=== PATIENT | female | born 1995 | race Two or more races ===

== ENCOUNTER 2017-09-20 20:28 | Inpatient (IN) | payer MEDICAID, OTHER ==
[~2017-09-20] VITALS: Ht 157.5 cm; Wt 79.4 kg
[2017-09-20] MEDS: LACTATED RINGER'S 1,000 ML IV SCH (21:00)
[2017-09-20] MEDS ORDERED: WITCH HAZEL-GLYCERIN PAD TOP PRN (21:15)
[2017-09-20] MEDS ORDERED: LACT. RINGERS/OXYTOCIN 20UNITS 1,000 ML IV SCH (21:15)
[2017-09-20] MEDS ORDERED: LIDOCAINE 2%HCL (LOCAL ANESTH.) INJ 20ML MDV IJ ONE (21:15)
[2017-09-20] MEDS ORDERED: DERMOPLAST 60ML BOTTLE TOP PRN (21:15)
[2017-09-20] MEDS ORDERED: PHISODERM TOP SOLN 240ML BTL TOP PRN (21:15)
[2017-09-20] MEDS ORDERED: NALBUPHINE HCL 10 MG/1ml INJECTION IV PRN (21:15)
[2017-09-20] MEDS ORDERED: METHYLERGONOVINE MALEATE 0.2 MG/ML AMP IM PRN (21:15)
[2017-09-20 22:00] LABS: Basophils # (auto) 0 uL; Eosinophils # (auto) 0 uL; Hemoglobin 9.7 g/dL (12.2-16.2)
[2017-09-20 22:01] LABS: Basophils % (auto) 0.6 % (0.0-2.0); Hematocrit 30.1 % (36.0-46.0); Lymphocytes % (auto) 12.4 % (10.0-50.0); Mean Corpuscular Hgb Conc. 32.1 g/dL (32.0-36.0); Mean Corpuscular Volume 71.6 fL (80.0-100.0); Monocytes # (auto) 0.4 uL; Neutrophils # (auto) 6.6 uL; Platelet Count (auto) 119 10^3/uL (140-450); Red Cell Distribution Width 17.2 % (11.8-14.3); White Blood Cell 8.1 10^3/uL (4.4-10.8)
[2017-09-20 22:15] LABS: INR 0.92 (0.9-1.15); Partial Thromboplastin Time 28.9 sec (22.64-33.71)
[2017-09-20 22:19] LABS: Albumin 2.9 g/dL (3.4-5.0); BUN/Creatinine Ratio 16.7; Calcium 8.1 mg/dL (8.5-10.1); Potassium 3.7 mmol/L (3.5-5.1)
[2017-09-20 22:21] LABS: Bilirubin, Total 0.6 mg/dL (0.2-1.0); Total Protein 6.9 g/dL (6.4-8.2)
[2017-09-20] MEDS ORDERED: PREN-96 PO (23:21)
[2017-09-20 23:32] LABS: Alcohol, Urine < 3.0 mg/dL (0-5); Amphetamine Screen, Urine NEGATIVE (NEGATIVE); Barbiturate Scree,Urine NEGATIVE (NEGATIVE); Benzodiazephine Screen, Urine NEGATIVE (NEGATIVE); Cannabinoid Screen, Urine NEGATIVE (NEGATIVE); Cocaine Screen, Urine NEGATIVE (NEGATIVE); Opiate Scree,Urine NEGATIVE (NEGATIVE); Phencyclidine Screen, Urine NEGATIVE (NEGATIVE)
[2017-09-20 23:37] LABS: Urine Bacteria NONE SEEN /hpf (None Seen); Urine Blood 2+ /uL (Negative); Urine Mucus FEW (None Seen); Urine Specific Gravity 1.023 (1.001-1.035); Urine WBC 61 /hpf (0 - 5)
[2017-09-21] MEDS ORDERED: ACETAMINOPHEN 325 MG TAB PO ONE (00:29)
[2017-09-21] MEDS: LACTATED RINGER'S 1,000 ML IV SCH ×2 (02:00→05:15)
[2017-09-21] MEDS: IBUPROFEN 600 MG TAB PO PRN ×5 (04:56→20:50)
[2017-09-21] MEDS ORDERED: INFLUENZA QUAD 2017-2018 0.5 ML SYRG IM ONE (08:00)
[2017-09-21 08:01] VITALS: BP 106/59
[2017-09-21] MEDS ORDERED: DOCUSATE CALCIUM 240 MG CAP PO SCH (10:00)
[2017-09-21 12:29] VITALS: BP 127/85
[2017-09-21 16:02] VITALS: BP 128/87
[2017-09-21] MEDS: ACETAMINOPHEN 325 MG TAB PO PRN ×2 (18:56→23:44)
[2017-09-21 19:48] VITALS: BP 108/64
[2017-09-21 23:54] VITALS: BP 98/54
[2017-09-22 03:30] VITALS: BP 113/69
[2017-09-22] MEDS ORDERED: MEASLES, MUMPS & RUBELLA VAC(MMRII) 0.5ML SC ONE (05:45)
[2017-09-22] MEDS ORDERED: TETANUS-DIPTH-ACEL PERTUSSIS 0.5ML SYRG IM ONE (05:45)
[2017-09-22 08:04] VITALS: BP 102/68
[2017-09-22] MEDS: IBUPROFEN 600 MG TAB PO PRN (08:06)
[2017-09-22 11:30] VITALS: BP 115/78
== END 2017-09-22 12:00 | disposition home or self-care (01) | DRG 560 ==
LOC: OBSVTOIN 20:28 → LDRP 20:28
PROVIDERS: ADMIT Specialist; ATTEND Specialist
PROC: 10E0XZZ Delivery of Products of Conception, External Approach (ICD-10-PCS; principal; 2017-09-21)
PROC: 3E033VJ Introduction of Other Hormone into Peripheral Vein, Percutaneous Approach (ICD-10-PCS; 2017-09-21)
DX: O42.92 Full-term premature rupture of membranes, unspecified as to length of time between rupture and onset of labor (principal); Z37.0 Single live birth; Z3A.39 39 weeks gestation of pregnancy
CPT/HCPCS: 36415; 59025; 59409; 80053; 80307; 81001; 81002; 85025; 85610; 85730; 86850; 86900; 86901; 90471; 90472; 90715; 96360; 96361; 96365; 96366; 96372; G0378; J2590

== ENCOUNTER 2017-12-30 17:57 | Emergency (ER) | payer MEDICAID ==
[~2017-12-30] VITALS: Ht 157.5 cm; Wt 70.3 kg
[~2017-12-30 17:57] MED LIST: PREN-96 PO
[2017-12-30 19:02] LABS: Eosinophils # (auto) 0 uL; Hemoglobin 12.1 g/dL (12.2-16.2); Monocytes # (auto) 0.3 uL; Neutrophils % (auto) 61.8 % (37.0-80.0)
[2017-12-30 19:08] LABS: Basophils # (auto) 0 uL; Basophils % (auto) 0.5 % (0.0-2.0); Eosinophils % (auto) 0.2 % (0.0-7.0); Hematocrit 37.1 % (36.0-46.0); Lymphocytes % (auto) 33.8 % (10.0-50.0); Mean Corpuscular Hgb Conc. 32.5 g/dL (32.0-36.0); Mean Corpuscular Volume 79.9 fL (80.0-100.0); Monocytes % (auto) 3.7 % (0.0-12.0); Neutrophils # (auto) 5.5 uL; Nucleated Red Blood Cells % 0.2 %; Platelet Count (auto) 340 10^3/uL (140-450); Red Blood Cells 4.65 10^6/uL (4.0-5.20); Red Cell Distribution Width 14.6 % (11.8-14.3); White Blood Cell 8.9 10^3/uL (4.4-10.8)
[2017-12-30 19:12] LABS: Acetaminophen < 2.0 ug/mL (10-30); Salicylate < 1.7 mg/dL (2.8-20.0)
[2017-12-30 19:14] LABS: BUN/Creatinine Ratio 14.3; Calcium 8.9 mg/dL (8.5-10.1); Potassium 3.6 mmol/L (3.5-5.1)
[2017-12-30 19:17] LABS: Bilirubin, Total 0.2 mg/dL (0.2-1.0); Total Protein 7.7 g/dL (6.4-8.2)
[2017-12-30 23:17] LABS: Urine Bacteria NONE SEEN /hpf (None Seen); Urine Blood 3+ /uL (Negative); Urine Mucus FEW (None Seen); Urine Specific Gravity 1.032 (1.001-1.035); Urine WBC 15 /hpf (0 - 5)
[2017-12-30 23:18] LABS: Urine Pregnacy Test Negative (Negative)
[2017-12-30 23:30] LABS: Alcohol, Urine < 3.0 mg/dL (0-5); Amphetamine Screen, Urine NEGATIVE (NEGATIVE); Barbiturate Scree,Urine NEGATIVE (NEGATIVE); Benzodiazephine Screen, Urine NEGATIVE (NEGATIVE); Cannabinoid Screen, Urine NEGATIVE (NEGATIVE); Cocaine Screen, Urine NEGATIVE (NEGATIVE); Opiate Scree,Urine NEGATIVE (NEGATIVE); Phencyclidine Screen, Urine NEGATIVE (NEGATIVE)
[2017-12-31 02:30] VITALS: BP 107/67
== END 2017-12-31 03:15 | disposition home or self-care (01) ==
LOC: ER 17:57
DX: R45.851 Suicidal ideations (principal); R42 Dizziness and giddiness; Z88.0 Allergy status to penicillin; Z79.899 Other long term (current) drug therapy; Y08.89XA Assault by other specified means, initial encounter; Y93.89 Activity, other specified; Y99.8 Other external cause status; Y92.89 Other specified places as the place of occurrence of the external cause
CPT/HCPCS: 36415; 70450; 70486; 80053; 80307; 80320; 80329; 81001; 81025; 85025

== ENCOUNTER 2018-12-01 14:20 | Observation (INO) | payer MEDICAID | END 2018-12-01 15:55 | disposition home or self-care (01) | DRG 566 | LOC: LDRP 14:20 | PROVIDERS: ADMIT Specialist; ATTEND Specialist | DX: O26.853 Spotting complicating pregnancy, third trimester (principal); O26.893 Other specified pregnancy related conditions, third trimester; N89.8 Other specified noninflammatory disorders of vagina; O62.9 Abnormality of forces of labor, unspecified; Z3A.29 29 weeks gestation of pregnancy | CPT/HCPCS: 59025; 76805; 76818; 81002; G0378 ==

== ENCOUNTER 2019-01-02 09:10 | Observation (INO) | payer MEDICAID ==
[2019-01-02] MEDS: TERBUTALINE SULFATE 1 MG/ML 1ML VIAL SC SCH ×3 (09:57→11:12)
[2019-01-02 10:12] LABS: Urine Bacteria FEW /hpf (None Seen); Urine Blood Negative /uL (Negative); Urine Mucus FEW (None Seen); Urine Specific Gravity 1.018 (1.001-1.035); Urine WBC 36 /hpf (0 - 5)
[2019-01-02 10:24] LABS: Alcohol, Urine < 3.0 mg/dL (0-5); Amphetamine Screen, Urine NEGATIVE (NEGATIVE); Barbiturate Scree,Urine NEGATIVE (NEGATIVE); Benzodiazephine Screen, Urine NEGATIVE (NEGATIVE); Cannabinoid Screen, Urine NEGATIVE (NEGATIVE); Cocaine Screen, Urine NEGATIVE (NEGATIVE); Opiate Scree,Urine NEGATIVE (NEGATIVE); Phencyclidine Screen, Urine NEGATIVE (NEGATIVE)
[2019-01-02] MEDS ORDERED: NIFEdipine 10 MG CAP PO ONE (11:45)
== END 2019-01-02 12:50 | disposition home or self-care (01) | DRG 566 ==
LOC: LDRP 09:10
PROVIDERS: ADMIT Obstetrics & Gynecology; ATTEND Obstetrics & Gynecology
DX: O62.9 Abnormality of forces of labor, unspecified (principal); O26.893 Other specified pregnancy related conditions, third trimester; N89.8 Other specified noninflammatory disorders of vagina; Z3A.33 33 weeks gestation of pregnancy
CPT/HCPCS: 59025; 76815; 80307; 81001; 81002; 96372; G0378; J3105

== ENCOUNTER 2019-01-10 22:03 | Observation (INO) | payer MEDICAID ==
[~2019-01-10] VITALS: Ht 157.5 cm; Wt 76.7 kg
[2019-01-10] MEDS ORDERED: LACTATED RINGER'S 1,000 ML IV ONE (22:50)
[2019-01-10] MEDS ORDERED: NIFEdipine 10 MG CAP PO ONE (23:00)
--- NOTE | 2019-01-10 23:56 | NUR ---
Admission Note Vaginal: Vacuum assisted of viable by Dr. Colin. Bulb suction to mouth and nose before stimulation. Cord clamped and cut by Dr. Colin. NB to radiant warmer. NB dried and stimulated by RN and RT. Poor resp effort. CPAP given. Continued drying and stimulating. Vigorous cry, grunting noted. Apgars 6/8/9. NB weighed, measured. ID bands applied on infant x2, mother and father. Dr. Colin requests NB remain in warmer during perineal repair and delivery of retained placenta. Education on the benefits of SSC and encouragement of given. 01/11/19 0100-- Report given to Leandro Aceves RN. NB stable. Care relinquished.
[2019-01-11] MEDS ORDERED: TERBUTALINE SULFATE 1 MG/ML 1ML VIAL SC ONE ×2 (02:00→02:11)
[2019-01-11] MEDS ORDERED: NIFEdipine 10 MG CAP PO ONE (03:10)
== END 2019-01-11 04:41 | disposition home or self-care (01) | DRG 566 ==
LOC: LDRP 22:03
PROVIDERS: ADMIT Specialist; ATTEND Specialist
DX: O00.01 Abdominal pregnancy with intrauterine pregnancy (principal); O26.853 Spotting complicating pregnancy, third trimester; O62.9 Abnormality of forces of labor, unspecified; Z3A.34 34 weeks gestation of pregnancy
CPT/HCPCS: 59025; 81002; 96372; G0378; J3105; 96365; 96366

== ENCOUNTER 2019-01-13 22:25 | Observation (INO) | payer MEDICAID ==
[~2019-01-13] VITALS: Ht 157.5 cm; Wt 76.7 kg
== END 2019-01-13 23:40 | disposition home or self-care (01) | DRG 563 ==
LOC: LDRP 22:25
PROVIDERS: ADMIT Obstetrics & Gynecology; ATTEND Obstetrics & Gynecology
DX: O60.03 Preterm labor without delivery, third trimester (principal); O62.9 Abnormality of forces of labor, unspecified; Z3A.35 35 weeks gestation of pregnancy
CPT/HCPCS: 59025; 81002; G0378

== ENCOUNTER 2019-01-17 21:14 | Observation (INO) | payer MEDICAID ==
--- NOTE | 2019-01-17 22:45 | NUR ---
AMA Note OVIDIO WORLEY states they want to leave the hospital Against Medical Advice (AMA). Patient encouraged to stay for further treatment/stabilization. Dr. Rosita Byrne notified of patient's wishes. Patient advised of the risks and benefits of leaving AMA. Patient verbalized understanding. Patient encouraged to return if symptoms do not improve or worsen.
[2019-01-17] MEDS ORDERED: NIF10C PO (23:18)
== END 2019-01-17 23:05 | disposition left against medical advice (07) | DRG 563 ==
LOC: LDRP 21:14 → UNDODISOB 23:05
PROVIDERS: ADMIT Obstetrics & Gynecology; ATTEND Obstetrics & Gynecology
DX: O60.03 Preterm labor without delivery, third trimester (principal); Z3A.35 35 weeks gestation of pregnancy
CPT/HCPCS: 59025; 81002; G0378

== ENCOUNTER 2019-01-20 23:39 | Observation (INO) | payer MEDICAID ==
[~2019-01-20] VITALS: Ht 157.5 cm; Wt 74.8 kg
[~2019-01-20 23:39] MED LIST changes: +NIF10C PO
[2019-01-21] MEDS ORDERED: TERBUTALINE SULFATE 1 MG/ML 1ML VIAL SC SCH (00:30)
== END 2019-01-21 00:50 | disposition home or self-care (01) | DRG 566 ==
LOC: LDRP 23:39
PROVIDERS: ADMIT Specialist; ATTEND Specialist
DX: O00.01 Abdominal pregnancy with intrauterine pregnancy (principal); O62.9 Abnormality of forces of labor, unspecified; Z3A.36 36 weeks gestation of pregnancy
CPT/HCPCS: 59025; 81002; G0378

== ENCOUNTER 2019-01-24 21:23 | Observation (INO) | payer MEDICAID | END 2019-01-24 22:15 | disposition home or self-care (01) | DRG 563 | LOC: LDRP 21:23 | PROVIDERS: ADMIT Specialist; ATTEND Specialist | DX: O60.03 Preterm labor without delivery, third trimester (principal); Z3A.36 36 weeks gestation of pregnancy | CPT/HCPCS: 59025; 81002; G0378 ==

== ENCOUNTER 2019-01-30 10:25 | Observation (INO) | payer MEDICAID | END 2019-01-30 12:30 | disposition home or self-care (01) | DRG 566 | LOC: LDRP 10:25 | PROVIDERS: ADMIT Obstetrics & Gynecology; ATTEND Obstetrics & Gynecology | DX: O62.9 Abnormality of forces of labor, unspecified (principal); O26.893 Other specified pregnancy related conditions, third trimester; N89.8 Other specified noninflammatory disorders of vagina; Z3A.37 37 weeks gestation of pregnancy | CPT/HCPCS: 59025; G0378 ==

== ENCOUNTER 2019-02-05 21:15 | Observation (INO) | payer MEDICAID ==
[~2019-02-05 21:15] MED LIST changes: -NIF10C PO
== END 2019-02-05 22:25 | disposition home or self-care (01) | DRG 565 ==
LOC: LDRP 21:15
PROVIDERS: ADMIT Obstetrics & Gynecology; ATTEND Obstetrics & Gynecology
DX: O47.1 False labor at or after 37 completed weeks of gestation (principal); Z3A.38 38 weeks gestation of pregnancy
CPT/HCPCS: 59025; 81002; G0378

== ENCOUNTER → 2019-05-22 | Day surgery (SDC) | payer MEDICAID ==
[~2019-05-22] VITALS: Ht 157.5 cm; Wt 72.1 kg
[~2019-05-22] MED LIST changes: +BUPIVACAINE 0.25% INJ 50ML VIAL ONE; +CLINDAMYCIN 600MG IV 50 ML IV ONE; +GLYCOPYRROLATE 0.2 MG/ML 1ML VIAL ONE; +HYDROmorphone HCL 2 MG/ML VL IV PRN; +LACTATED RINGER'S 1,000 ML IV SCH; +LIDOCAINE 1% (LOCAL ANESTH.) PF 5ml SDV ONE; +LIDOCAINE 1% HCL (LOCAL ANESTH.) INJ 20ML MDV ONE; +LIDOCAINE 1% INJ PF 5ML AMP IV ONE; +METHYLENE BLUE 0.5% 5MG/ML 10ml AMP IV ONE; +METOCLOPRAMIDE HCL 5MG/ml INJ 2ml VIAL ONE; +MIDAZOLAM HCL 1MG/1ML-2 ML VIAL ONE; +NALOXONE HCL 0.4 MG/ML VIAL IV PRN; +NEOSTIGMINE 1 MG/ML INJ (10mg/10ML VIAL) ONE; +ONDANSETRON HCL 4 MG/2 ML VIAL IV PRN; -PREN-96 PO; +PROPOFOL 10 MG/ML 100ML BOTTLE IV ONE; +ROCURONIUM 10MG/ML 10ML VIAL IV ONE; +SUCCINYLCHOLINE CHLORIDE 20 MG/ML 10ML VIAL IV ONE; +ceFAZolin 1GM VL IV ONE; +fentaNYL CITRATE 100 MCG/2 ML VL ONE
[2019-05-22] MEDS: HYDROmorphone HCL 2 MG/ML VL IV PRN ×3 (08:34→08:54)
[2019-05-22 09:22] VITALS: BP 113/70
== END | disposition home or self-care (01) ==
LOC: SUR 06:18
PROVIDERS: ATTEND Obstetrics & Gynecology
DX: Z30.2 Encounter for sterilization (principal); Z88.1 Allergy status to other antibiotic agents; D64.9 Anemia, unspecified; Z98.890 Other specified postprocedural states
CPT/HCPCS: 58671; J0330; J0690; J1170; J2250; J2704; J2765; J3010; J3490; J2001

== ENCOUNTER 2024-09-03 10:33 | Emergency (ER) | payer MEDICAID ==
[~2024-09-03] VITALS: Ht 157.5 cm; Wt 88.0 kg
[2024-09-03 11:37] VITALS: BP 120/56; PULSE 93; RESP 16; TEMP 97.8; O2SAT 96
[2024-09-03] MEDS ORDERED: AZIT500T66 PO (11:53)
[2024-09-03] MEDS ORDERED: IBUP-1456 PO (11:53)
--- NOTE | 2024-09-03 11:58 | ED.PDOC ---
Eye-HPI HPI Comments A 28 YEAR OLD FEMALE PRESENTS TO THE ED WITH COMPLAINT OF SORE THROAT AND BODY ACHES. PATIENT STATES SHE HAS BEEN EXPERIENCING A SORE THROAT, BODY ACHES, AND OCCASIONAL FEVER THAT STARTED YESTERDAY NIGHT. PATIENT DENIES SHORTNESS OF BREATH, CHEST PAIN, ABDOMINAL PAIN, NAUSEA, VOMITING, HEADACHE, OR OTHER COMPLAINTS. NO OTHER SYMPTOMS OR MODIFYING FACTORS AT THIS TIME. PATIENT IS ALERT, ORIENTED X 4, AND HAS STEADY GAIT. Chief Complaint: Sore Throat Time Seen by MD: 10:59 Primary Care Provider: CLIFFORD Carter Notes: Nurses Notes, Medications, Allergies Allergies: Coded Allergies: Amoxicillin (Verified Allergy, Intermediate, Rash, 05/19/19) Home Meds Active Scripts Ibuprofen (Ibuprofen) 800 Mg Tab, 1 TAB PO TID, #30 TAB Prov:MICKY MOSS 09/03/24 Azithromycin (Azithromycin) 500 Mg Tab, 1 TAB PO DAILY, #5 TAB Prov:MICKY MOSS 09/03/24 Information Source: Patient Mode of Arrival: Ambulatory Timing: Days Duration: Since onset, Days Prehospital treatment: None Quality: Pain, Red Lids: Normal Conjunctiva: Normal Cornea: Normal Pupils: Normal EOM: Normal Fundus: Normal Slit lamp exam: Normal Anterior chamber: Normal Mouth Location: Pharynx Mouth: Normal ENT Ear Exam: Normal, Normal, Normal Nose: Normal Sinuses: Normal Oropharynx: Tonsillar hypertrophy, Red Onset: Spontaneous Throat Exposed to: None History of: None Last Tetanus: Unknown Modifying factors: Nothing Associated signs and symptoms: Fever, Nasal Symptoms, Sore Throat Past Medical History PAST MEDICAL HISTORY: Denies Surgical History: Denies all surgeries STUDENT ADMISSIONS CLERK History: No Pertinent STUDENT ADMISSIONS CLERK History Family History Family History: Reviewed,noncontributory to illness Social History Smoker: Non-Smoker Alcohol: Denies ETOH Use Drugs: Denies Drug Use Lives In: Home Constitutional: reports: fever; denies: chills, diaphoresis, fatigue, malaise, sweats, weakness, others EENTM: reports: nose congestion, throat pain, throat swelling; denies: blurred vision, double vision, ear bleeding, ear discharge, ear drainage, ear pain, ear ringing, eye pain, eye redness, hearing loss, mouth pain, mouth swelling, nasal discharge, nose bleeding, nose pain, photophobia, tearing, voice changes, others Respiratory: denies: cough, hemoptysis, orthopnea, SOB at rest, shortness of breath, SOB with excertion, stridor, wheezing, others Cardiovascular: denies: chest pain, dizzy spells, diaphoresis, Dyspnea on exertion, edema, irregular heart beat, left arm pain, lightheadedness, palpitations, PND, syncope, others Gastrointestinal: denies: abdomen distended, abdominal pain, blood streaked bowels, constipated, diarrhea, dysphagia, difficulty swallowing, hematemesis, melena, nausea, poor appetite, poor fluid intake, rectal bleeding, rectal pain, vomiting, others Genitourinary: denies: abnormal vagina bleeding, burning, dyspareunia, dysuria, flank pain, frequency, hematuria, incontinence, pain, , vagina discharge, urgency, others Neurological: denies: dizziness, fainting, headache, left sided numbness, left sided weakness, numbness, paresthesia, pre-existing deficit, right sided numbness, right sided weakness, seizure, speech problems, tingling, tremors, weakness, others Musculoskeletal: reports: muscle pain; denies: back pain, gout, joint pain, joint swelling, muscle stiffness, neck pain, others Integumetry: denies: bruises, change in color, change in hair/nails, dryness, laceration, lesions, lumps, rash, wounds, others Allergic/Immunocompromised: denies: Difficulty Healing, Frequent Infections, Hives, Itching, others Hematologic/Lymphatic: denies: anemia, blood clots, easy bleeding, easy bruising, swollen glands, others Endocrine: denies: excessive hunger, excessive sweating, excessive thirst, excessive urination, flushing, intolerance to cold, intolerance to heat, unexpla ined weight gain, unexplained weight loss, others Psychiatric: denies: anxiety, bipolar disorder, depression, hopeless, panic disorder, schizophrenia, sleepless, suicidal, others All Other Systems: Reviewed and Negative Physical Exam General Appearance: No Apparent Distress, Normal HEENT: PERRL/EOMI, Pharyngeal Erythema (TONSILLAR SWELLING, NO EXUDATES. ), TMs Normal Neck: Full Range of Motion, Non-Tender, Normal, Normal Inspection Respiratory: Chest Non-Tender, Lungs Clear, No Accessory Muscle Use, No Respiratory Distress, Normal Breath Sounds Cardiovascular: No Edema, No JVD, No Murmur, No Gallop, Normal Peripheral Pulses, Regular Rate/Rhythm Breast Exam: Deferred Gastrointestinal: No Organomegaly, Non Tender, No Pulsatile Mass, Normal Bowel Sounds, Soft Genitalia: Deferred Pelvic: Deferred Rectal: Deferred Extremities: No calf tenderness, Normal capillary refill, Normal inspection, Normal range of motion, Non-tender, No pedal edema Musculoskeletal : Apperance: Normal Neurologic: Alert, maintenance manager II-XII nml as Tested, No Motor Deficits, Normal Affect, Normal Mood, No Sensory Deficits Cerebellar Function: Normal Reflexes: Normal Skin: Dry, Normal Color, Warm Peripheral Pulses: 2+ carotid (R), 2+ carotid (L) Lymphatic: No Adenopathy Was a procedure done? Was a procedure done?: No EENT DIFF Eye: N/A Ear: Otitis Media, Pharyngitis, Sinusitis Nose: N/A Mouth: N/A Sore Throat: Pharyngitis, Streptococcal, Viral Pharyngitis, URI X-Ray, Labs, Meds, VS Vital Signs Date Time Temp Pulse Resp B/P (MAP) Pulse Ox O2 Delivery O2 Flow Rate FiO2 09/03/24 11:37 93 16 96 Room Air 09/03/24 11:37 97.8 93 16 120/56 (77) 96 97.8 09/03/24 10:49 97.8 93 16 120/56 (77) 96 X-Ray, Labs, Meds, VS Comment EXTERNAL MEDICAL RECORDS REVIEWED: [NONE] INDEPENDENT HISTORIANS: [NONE] SOCIAL DETERMINANTS OF HEALTH: [NONE] LABS ORDERED: NONE REVIEWED AND INTERPRETED RESULTS: NONE IMAGING ORDERED: NONE TREATMENTS ORDERED: NONE PROCEDURES PERFORMED: NONE CRITICAL CARE TIME: NONE I HAVE DISCUSSED THE PATIENT WITH THE ATTENDING PHYSICIAN DR. MANNING AND HE AGREES WITH THE PATIENT'S PLAN OF CARE AND DISPOSITION. BASED ON HISTORY OF PRESENT ILLNESS, AND PHYSICAL EXAM, PATIENT WILL BE DISCHARGED HOME. DISCUSSED PLAN FOR DISCHARGE HOME WITH RX [AZITHROMYCIN AND IBUPROFEN 800 MG]. MEDICATION WARNINGS GIVEN. SHARED DECISION MAKING: PATIENT INSTRUCTED TO FOLLOW UP WITH PRIMARY CARE PROVIDER IN 1-2 DAYS FOR RE-EVALUATION OF SYMPTOMS. PATIENT VERBALIZES UNDERSTANDING TO RETURN TO ED FOR NEW OR WORSENING SYMPTOMS OR IF FOLLOW UP WITH PCP CANNOT BE OBTAINED. PATIENT FEELS COMFORTABLE GOING HOME AT THIS TIME. ALL QUESTIONS ADDRESSED AT TIME OF DISCHARGE. Time of 1ST Reevaluation: 12:01 Reevaluation 1ST: Improved Patient Education/Counseling: Diagnosis, Treatment, Need For Follow Up Family Education/Counseling: Diagnosis, Treatment, Need For Follow Up Medical Screening: No EMC Exist At This Time Departure 1 Departure Time of Disposition: 12:01 Impression: Primary Impression: Acute tonsillitis Qualified Codes: J03.90 - Acute tonsillitis, unspecified Disposition: HOME / SELF CARE / HOMELESS Condition: Stable Additional Instructions: FOLLOW-UP WITH PCP IN 1 TO 2 DAYS. TAKE MEDICATIONS PRESCRIBED. RETURN TO ED FOR ANY NEW OR WORSENING SYMPTOMS. e-Prescriptions Ibuprofen (Ibuprofen) 800 Mg Tab 1 TAB PO TID, #30 TAB Prov: MICKY MOSS 09/03/24 Azithromycin (Azithromycin) 500 Mg Tab 1 TAB PO DAILY, #5 TAB Prov: MICKY MOSS 09/03/24 Discharged With: Self Critical Care Note Critical Care Time?: No Stability Stability form required: No I personally scribed for MICKY MOSS ([email or web address]) on 09/03/24 at 11:58. Electronically submitted by Pan Marina ([email or web address]). MICKY MOSS Sep 03, 2024 11:58
== END 2024-09-03 12:05 | disposition home or self-care (01) ==
LOC: ER 10:36
DX: J03.90 Acute tonsillitis, unspecified (principal); Z79.1 Long term (current) use of non-steroidal anti-inflammatories (NSAID); Z88.1 Allergy status to other antibiotic agents

== ENCOUNTER 2024-09-05 04:49 | Emergency (ER) | payer MEDICAID ==
[~2024-09-05] VITALS: Ht 157.5 cm; Wt 88.5 kg
[~2024-09-05 04:49] MED LIST changes: +AZIT500T66 PO; -BUPIVACAINE 0.25% INJ 50ML VIAL ONE; -CLINDAMYCIN 600MG IV 50 ML IV ONE; -GLYCOPYRROLATE 0.2 MG/ML 1ML VIAL ONE; -HYDROmorphone HCL 2 MG/ML VL IV PRN; +IBUP-1456 PO; -LACTATED RINGER'S 1,000 ML IV SCH; -LIDOCAINE 1% (LOCAL ANESTH.) PF 5ml SDV ONE; -LIDOCAINE 1% HCL (LOCAL ANESTH.) INJ 20ML MDV ONE; -LIDOCAINE 1% INJ PF 5ML AMP IV ONE; -METHYLENE BLUE 0.5% 5MG/ML 10ml AMP IV ONE; -METOCLOPRAMIDE HCL 5MG/ml INJ 2ml VIAL ONE; -MIDAZOLAM HCL 1MG/1ML-2 ML VIAL ONE; -NALOXONE HCL 0.4 MG/ML VIAL IV PRN; -NEOSTIGMINE 1 MG/ML INJ (10mg/10ML VIAL) ONE; -ONDANSETRON HCL 4 MG/2 ML VIAL IV PRN; -PROPOFOL 10 MG/ML 100ML BOTTLE IV ONE; -ROCURONIUM 10MG/ML 10ML VIAL IV ONE; -SUCCINYLCHOLINE CHLORIDE 20 MG/ML 10ML VIAL IV ONE; -ceFAZolin 1GM VL IV ONE; -fentaNYL CITRATE 100 MCG/2 ML VL ONE
--- NOTE | 2024-09-05 07:03 | ED.PDOC ---
Eye-HPI HPI Comments A 28 YEAR OLD FEMALE PRESENTS TO THE ED WITH COMPLAINT OF SORE THROAT. PATIENT STATES SHE HAS BEEN EXPERIENCING A SORE THROAT, BODY ACHES, CONGESTION, AND OCCASIONAL PAIN HER FOR THE PAST 3 DAYS. PATIENT REPORTS HE CAME TO THIS ED 2 DAYS AGO FOR THE SAME COMPLAINT WHERE SHE WAS PRESCRIBED AZITHROMYCIN AND IBUPROFEN 800 MG, BUT NOTES THERE HAS BEEN ONLY MINIMAL IMPROVEMENT. PATIENT DENIES SHORTNESS OF BREATH, CHEST PAIN, ABDOMINAL PAIN, NAUSEA, VOMITING, HEADACHE, OR OTHER COMPLAINTS. NO OTHER SYMPTOMS OR MODIFYING FACTORS AT THIS TIME. PATIENT IS ALERT, ORIENTED X 4, AND HAS STEADY GAIT. Chief Complaint: Sore Throat Time Seen by MD: 06:27 Primary Care Provider: CLIFFORD Carter Notes: Nurses Notes, Medications, Allergies Allergies: Coded Allergies: Amoxicillin (Verified Allergy, Intermediate, Rash, 05/19/19) Home Meds Active Scripts Ibuprofen (Ibuprofen) 800 Mg Tab, 1 TAB PO TID, #30 TAB Prov:MICKY MOSS 09/03/24 Azithromycin (Azithromycin) 500 Mg Tab, 1 TAB PO DAILY, #5 TAB Prov:MICKY MOSS 09/03/24 Information Source: Patient Mode of Arrival: Ambulatory Timing: Days Duration: Since onset, Days Prehospital treatment: None Quality: Pain, Red Lids: Normal Conjunctiva: Normal Cornea: Normal Pupils: Normal EOM: Normal Fundus: Normal Slit lamp exam: Normal Anterior chamber: Normal Mouth Location: Pharynx Mouth: Normal ENT Ear Exam: Normal, Normal, Normal Nose: Normal Sinuses: Normal Oropharynx: Tonsillar hypertrophy, Red, Exudate Onset: Spontaneous Throat Exposed to: None History of: None Last Tetanus: Unknown Modifying factors: Nothing Associated signs and symptoms: Fever, Nasal Symptoms, Sore Throat Past Medical History PAST MEDICAL HISTORY: Denies Surgical History: Denies all surgeries HYDROGEN BRAZE FURNACE OPERATOR History: No Pertinent HYDROGEN BRAZE FURNACE OPERATOR History Family History Family History: Reviewed,noncontributory to illness Social History Smoker: Non-Smoker Alcohol: Denies ETOH Use Drugs: Denies Drug Use Lives In: Home Constitutional: reports: fever; denies: chills, diaphoresis, fatigue, malaise, sweats, weakness, others EENTM: reports: nose congestion, throat pain, throat swelling; denies: blurred vision, double vision, ear bleeding, ear discharge, ear drainage, ear pain, ear ringing, eye pain, eye redness, hearing loss, mouth pain, mouth swelling, nasal discharge, nose bleeding, nose pain, photophobia, tearing, voice changes, others Respiratory: denies: cough, hemoptysis, orthopnea, SOB at rest, shortness of breath, SOB with excertion, stridor, wheezing, others Cardiovascular: denies: chest pain, dizzy spells, diaphoresis, Dyspnea on exer tion, edema, irregular heart beat, left arm pain, lightheadedness, palpitations, PND, syncope, others Gastrointestinal: denies: abdomen distended, abdominal pain, blood streaked bowels, constipated, diarrhea, dysphagia, difficulty swallowing, hematemesis, melena, nausea, poor appetite, poor fluid intake, rectal bleeding, rectal pain, vomiting, others Genitourinary: denies: abnormal vagina bleeding, burning, dyspareunia, dysuria, flank pain, frequency, hematuria, incontinence, pain, , vagina discharge, urgency, others Neurological: denies: dizziness, fainting, headache, left sided numbness, left sided weakness, numbness, paresthesia, pre-existing deficit, right sided numbness, right sided weakness, seizure, speech problems, tingling, tremors, weakness, others Musculoskeletal: reports: muscle pain; denies: back pain, gout, joint pain, joint swelling, muscle stiffness, neck pain, others Integumetry: denies: bruises, change in color, change in hair/nails, dryness, laceration, lesions, lumps, rash, wounds, others Allergic/Immunocompromised: denies: Difficulty Healing, Frequent Infections, Hives, Itching, others Hematologic/Lymphatic: denies: anemia, blood clots, easy bleeding, easy bruising, swollen glands, others Endocrine: denies: excessive hunger, excessive sweating, excessive thirst, excessive urination, flushing, intolerance to cold, intolerance to heat, unexplained weight gain, unexplained weight loss, others Psychiatric: denies: anxiety, bipolar disorder, depression, hopeless, panic disorder, schizophrenia, sleepless, suicidal, others All Other Systems: Reviewed and Negative Physical Exam General Appearance: No Apparent Distress, Obese HEENT: PERRL/EOMI, Pharyngeal Erythema (TONSILLAR SWELLING WITH EXUDATES. ), TMs Normal, Tonsillar Exudate Neck: Full Range of Motion, Lymphadenopathy (R), Non-Tender, Normal, Normal Inspection Respiratory: Chest Non-Tender, Lungs Clear, No Accessory Muscle Use, No Respiratory Distress, Normal Breath Sounds Cardiovascular: No Edema, No JVD, No Murmur, No Gallop, Normal Peripheral Pulses, Regular Rate/Rhythm Breast Exam: Deferred Gastrointestinal: No Organomegaly, Non Tender, No Pulsatile Mass, Normal Bowel Sounds, Soft Genitalia: Deferred Pelvic: Deferred Rectal: Deferred Extremities: No calf tenderness, Normal capillary refill, Normal inspection, Normal range of motion, Non-tender, No pedal edema Musculoskeletal : Apperance: Normal Neurologic: Alert, sealer dry cell II-XII nml as Tested, No Motor Deficits, Normal Affect, Normal Mood, No Sensory Deficits Cerebellar Function: Normal Reflexes: Normal Skin: Dry, Normal Color, Warm Peripheral Pulses: 2+ carotid (R), 2+ carotid (L) Lymphatic: Cervical Adenopathy (R) Was a procedure done? Was a procedure done?: No EENT DIFF Eye: N/A Ear: Otitis Media, Pharyngitis, Sinusitis Nose: N/A Mouth: N/A Sore Throat: Pharyngitis, Streptococcal, Viral Pharyngitis, URI X-Ray, Labs, Meds, VS Vital Signs Date Time Temp Pulse Resp B/P (MAP) Pulse Ox O2 Delivery O2 Flow Rate FiO2 09/05/24 07:07 108 20 97 Room Air 09/05/24 07:07 99.6 108 20 111/71 (84) 97 99.6 09/05/24 05:12 98.4 105 20 125/73 (90) 99 Lab Test 09/05/24 07:05 Range/Units Group A Streptococcus Rapid Positive Current Medications Medications (Trade) Dose Ordered Sig/Slava Route Start Time Stop Time Status Last Admin Ceftriaxone Sodium (Rocephin) 1,000 mg ONCE ONCE IM 09/05/24 07:00 09/05/24 07:01 DC 09/05/24 07:32 Methylprednisolone Sodium Succinate (Solu Medrol) 125 mg ONCE ONCE IM 09/05/24 07:00 09/05/24 07:01 DC 09/05/24 07:32 X-Ray, Labs, Meds, VS Comment EXTERNAL MEDICAL RECORDS REVIEWED: [NONE] INDEPENDENT HISTORIANS: [NONE] SOCIAL DETERMINANTS OF HEALTH: [NONE] LABS ORDERED: STREP A RAPID REVIEWED AND INTERPRETED RESULTS: IMAGING ORDERED: NONE TREATMENTS ORDERED: ROCEPHIN 1 G IM, SOLU-MEDROL 125 MG IM PROCEDURES PERFORMED: NONE CRITICAL CARE TIME: NONE I HAVE DISCUSSED THE PATIENT WITH THE ATTENDING PHYSICIAN DR. LLANOS AND HE AGREES WITH THE PATIENT'S PLAN OF CARE AND DISPOSITION. BASED ON HISTORY OF PRESENT ILLNESS, AND PHYSICAL EXAM, PATIENT WILL BE DISCHARGED HOME. DISCUSSED PLAN FOR DISCHARGE HOME WITH RX . MEDICATION WARNINGS GIVEN. SHARED DECISION MAKING: PATIENT INSTRUCTED TO FOLLOW UP WITH PRIMARY CARE PROVIDER IN 1-2 DAYS FOR RE-EVALUATION OF SYMPTOMS. PATIENT VERBALIZES UNDERSTANDING TO RETURN TO ED FOR NEW OR WORSENING SYMPTOMS OR IF FOLLOW UP WITH PCP CANNOT BE OBTAINED. PATIENT FEELS COMFORTABLE GOING HOME AT THIS TIME. ALL QUESTIONS ADDRESSED AT TIME OF DISCHARGE. Time of 1ST Reevaluation: 08:00 Reevaluation 1ST: Improved Patient Education/Counseling: Diagnosis, Treatment, Need For Follow Up Family Education/Counseling: Diagnosis, Treatment, Need For Follow Up Medical Screening: No EMC Exist At This Time Departure 1 Departure Time of Disposition: 08:00 Impression: Primary Impression: Acute streptococcal tonsillitis Qualified Codes: J03.00 - Acute streptococcal tonsillitis, unspecified Additional Impression: Exudative tonsillitis Disposition: HOME / SELF CARE / HOMELESS Condition: Stable Additional Instructions: FOLLOW-UP WITH PCP IN 1 TO 2 DAYS. TAKE MEDICATIONS PRESCRIBED. RETURN TO ED FOR ANY NEW OR WORSENING SYMPTOMS. e-Prescriptions Lidocaine HCl (Mouth-Throat) (Lidocaine HCl Viscous) 2 % Mariza 5 ML MT TID, #100 ML Prov: MICKY MOSS 09/05/24 Penicillin V Potassium (Veetids) 500 Mg Tab 1 TAB PO QID, #28 TAB Prov: MICKY MOSS 09/05/24 Discharged With: Self Critical Care Note Critical Care Time?: No Stability Stability form required: No I personally scribed for MICKY MOSS ([email or web address]) on 09/05/24 at 07:03. Electronically submitted by Pan Marina ([email or web address]). MICKY MOSS Sep 05, 2024 07:03
[2024-09-05 07:07] VITALS: BP 111/71; PULSE 108; RESP 20; TEMP 99.6; O2SAT 97
[2024-09-05] MEDS: methylPREDNISolone SOD SUCC 125 MG/2 ML VL IM ONE (07:32)
[2024-09-05] MEDS: cefTRIAXone SOD 1,000 MG VL IM ONE (07:32)
[2024-09-05 07:40] LABS: Rapid Strep A Screen-Throat Positive
[2024-09-05] MEDS ORDERED: PENI500T2 PO (07:58)
[2024-09-05] MEDS ORDERED: LIDO2SOL26 MT (07:58)
== END 2024-09-05 08:08 | disposition home or self-care (01) ==
LOC: ER 04:49
DX: J03.00 Acute streptococcal tonsillitis, unspecified (principal); Z88.1 Allergy status to other antibiotic agents
CPT/HCPCS: 87880; 96372; 99284; J0696; J2919

== ENCOUNTER 2025-03-03 07:03 | Emergency (ER) | payer MEDICAID ==
[~2025-03-03] VITALS: Ht 157.5 cm; Wt 89.6 kg
[~2025-03-03 07:03] MED LIST changes: +LIDO2SOL26 MT; +PENI500T2 PO
--- NOTE | 2025-03-03 08:17 | DVH ---
EXAMINATION: XY L RIB X RAY INDICATION: Fall. Pain COMPARISON: None TECHNIQUE: Frontal view of the chest and 4 views of the left ribs history FINDINGS: No focal consolidation, pleural effusion or significant pneumothorax. Normal cardiomediastinal silhou ette. No displaced left rib fracture. IMPRESSION: No acute cardiopulmonary disease. No displaced left rib fracture.
--- NOTE | 2025-03-03 08:56 | ED.PDOC ---
History of Present Illness HPI Comments 29 year old female presents to the ED w/ c/o Left sided Rib Pain. Pt states that her pain started 1x day ago and has found no alleviating factors, but notes if a worsening factor of movement at this time. Pt states that she woke up w/ pain this morning and has taken 400mg of Ibuprofen. Pt denies fall or recent injury at this time. Denies fevers chills night sweats unintentional weight loss Denies nausea vomiting diarrhea Denies blood in the stool Denies sick contact with similar symptoms Denies new foods/medications Denies family history of GI cancer Denies urgency, frequency, hematuria Denies vaginal discharge Chief Complaint: Rib Pain Time Seen by MD: 08:47 Primary Care Provider: CLIFFORD Carter Notes: Nurses Notes, Medications, Allergies Allergies: Coded Allergies: Amoxicillin (Verified Allergy, Intermediate, Rash, 05/19/19) Home Meds Active Scripts Lidocaine HCl (Mouth-Throat) (Lidocaine HCl Viscous) 2 % Mariza, 5 ML MT TID, #100 ML Prov:MICKY MOSS 09/05/24 Penicillin V Potassium (Veetids) 500 Mg Tab, 1 TAB PO QID, #28 TAB Prov:MICKY MOSS 09/05/24 Ibuprofen (Ibuprofen) 800 Mg Tab, 1 TAB PO TID, #30 TAB Prov:MICKY MOSS 09/03/24 Azithromycin (Azithromycin) 500 Mg Tab, 1 TAB PO DAILY, #5 TAB Prov:MICKY MOSS 09/03/24 Information Source: Patient Mode of Arrival: Ambulatory Severity: Mild Timing: Hours Duration: Since onset, Hours Prehospital treatment: None Past Medical History PAST MEDICAL HISTORY: Denies Surgical History: Denies all surgeries AUTOMATIC COIN MACHINE MECHANIC History: No Pertinent AUTOMATIC COIN MACHINE MECHANIC History Family History Family History: Reviewed,noncontributory to illness Social History Smoker: Non-Smoker Alcohol: Denies ETOH Use Drugs: Denies Drug Use Lives In: Home Constitutional: denies: chills, diaphoresis, fatigue, fever, malaise, sweats, weakness, others EENTM: denies: blurred vision, double vision, ear bleeding, ear discharge, ear drainage, ear pain, ear ringing, eye pain, eye redness, hearing loss, mouth pain, mouth swelling, nasal discharge, nose bleeding, nose congestion, nose pain, photophobia, tearing, throat pain, throat swelling, voice changes, others Respiratory: denies: cough, hemoptysis, orthopnea, SOB at rest, shortness of breath, SOB with excertion, stridor, wheezing, others Cardiovascular: denies: chest pain, dizzy spells, diaphoresis, Dyspnea on exertion, edema, irregular heart beat, left arm pain, lightheadedness, palpitations, PND, syncope, others Gastrointestinal: denies: abdomen distended, abdominal pain, blood streaked bowels, constipated, diarrhea, dysphagia, difficulty swallowing, hematemesis, melena, nausea, poor appetite, poor fluid intake, rectal bleeding, rectal pain, vomiting, others Genitourinary: reports: flank pain; denies: abnormal vagina bleeding, burning, dyspareunia, dysuria, frequency, hematuria, incontinence, pain, , vagina discharge, urgency, others Neurological: denies: dizziness, fainting, headache, left sided numbness, left sided weakness, numbness, paresthesia, pre-existing deficit, right sided numbness, right sided weakness, seizure, speech problems, tingling, tremors, weakness, others Musculoskeletal: denies: back pain, gout, joint pain, joint swelling, muscle pain, muscle stiffness, neck pain, others Integumetry: denies: bruises, change in color, change in hair/nails, dryness, laceration, lesions, lumps, rash, wounds, others Allergic/Immunocompromised: denies: Difficulty Healing, Frequent Infections, Hives, Itching, others Hematologic/Lymphatic: denies: anemia, blood clots, easy bleeding, easy bruising, swollen glands, others Endocrine: denies: excessive hunger, excessive sweating, excessive thirst, excessive urination, flushing, intolerance to cold, intolerance to heat, unexp lained weight gain, unexplained weight loss, others Psychiatric: denies: anxiety, bipolar disorder, depression, hopeless, panic disorder, schizophrenia, sleepless, suicidal, others All Other Systems: Reviewed and Negative Physical Exam General Appearance: Mild Distress, Normal HEENT: Normal ENT Inspection, Pharynx Normal, TMs Normal Neck: Full Range of Motion, Non-Tender, Normal, Normal Inspection Respiratory: Chest Non-Tender, Lungs Clear, No Respiratory Distress, Normal Breath Sounds Cardiovascular: No Murmur, Regular Rate/Rhythm Breast Exam: Deferred Gastrointestinal: Non Tender, No Pulsatile Mass, Normal Bowel Sounds, Soft Genitalia: Deferred Pelvic: Deferred Rectal: Deferred Extremities: No calf tenderness, Normal capillary refill, Normal inspection, Normal range of motion, Non-tender, No pedal edema Musculoskeletal : Location: Left Extremity Location: Other (CVA negative bilateraly, No ABD pain, but Left lateral 12th rib pain on the left side) Apperance: Normal Neurologic: Alert, No Motor Deficits, Normal Mood Cerebellar Function: Normal Reflexes: Normal Skin: Dry, Normal Color, Warm Lymphatic: No Adenopathy Was a procedure done? Was a procedure done?: No Differential Dx Considerations may include: Strain, musculoskeletal, UTI, pyelonephritis, nephrolithiasis X-Ray, Labs, Meds, VS Vital Signs Date Time Temp Pulse Resp B/P (MAP) Pulse Ox O2 Delivery O2 Flow Rate FiO2 03/03/25 07:34 98.7 85 20 113/72 (86) 96 98.7 03/03/25 07:34 85 20 96 Room Air 03/03/25 07:19 98.7 85 20 113/72 (86) 96 98.7 Current Medications Medications (Trade) Dose Ordered Sig/Slava Route Start Time Stop Time Status Last Admin Ketorolac Tromethamine (Toradol Injection) 60 mg ONCE ONCE IM 03/03/25 09:00 03/03/25 09:01 DC 03/03/25 09:05 Acetaminophen (Tylenol Tablet Or Capsule) 1,000 mg ONCE ONCE PO 03/03/25 09:00 03/03/25 09:01 DC 03/03/25 09:05 PATIENT: OVIDIO WORLEY ACCT: [id number] UNIT: [id number] : 1995 LOC: ER ROOM / BED: / AGE / SEX: 29 / F ADM STATUS: REG ER SERVICE 0723 ORDERING PHYSICIAN: JACINTA MERRITT NP PROCEDURE(s): LRIBS - L RIB X RAY REASON: Fall. R/o fracture ORDER NUMBER(s): [id number], ACCESSION NUMBER(s): [id number] EXAMINATION: XY L RIB X RAY INDICATION: Fall. Pain COMPARISON: None TECHNIQUE: Frontal view of the chest and 4 views of the left ribs history FINDINGS: No focal consolidation, pleural effusion or significant pneumothorax. Normal cardiomediastinal silhouette. No displaced left rib fracture. IMPRESSION: No acute cardiopulmonary disease. No displaced left rib fracture. X-Ray, Labs, Meds, VS Comment 29 year old female presents to the ED for the c/c of Left sided Rib Pain. Patient arrives alert and oriented, ABC's intact, afebrile, vital signs stable, saturating well in room air X- Ray Ordered Diagnostic imaging ordered by me and results interpreted by radiology :IMPRESSION: No acute cardiopulmonary disease.No displaced left rib fracture. Patient was given: Toradol, and 1g of Tylenol_. Tolerated medications with no adverse reaction. The patient presented to the Emergency Department with atraumatic left sided rib pain that is nonradiating History and ER workup do not suggest appendicitis, AAA, bowel ischemia, bowel perforation, bowel obstruction, constipation, cholecystitis, diverticulitis/diverticulosis, pneumonia, urinary tract infect ion/pyelonephritis, hernia or other genitourinary etiology. On reevaluation the patient is feeling better and is afebrile. VSS. Abdomen exam is benign. No peritoneal signs. Pain is not out of proportion. No pulsatile mass. No tenderness at McBurneys point. Patient declined labs and diagnostic imaging. They are comfortable being discharged home. The patient is being discharged home with PMD follow up. The patient has been advised to return to the Emergency Room immediately if they develop worsening pain, fever, vomiting, or weakness. Additional MDM Review of External, Non-ED records: External records reviewed. Discussion with independent historian (EMS, family) history obtained from the patient/parents (if applicable) at bedside Chronic conditions affecting care: None Social determinants of health affecting care: None Consideration of admission (observation or admission): I considered escalation of care to admission for this patient, however given the reassuring workup, the patient is safe for outpatient management. Time of 1ST Reevaluation: 09:17 Reevaluation 1ST: Unchanged Time of 2ND Reevaluation: 09:29 Reevaluation 2ND: Improved Patient Education/Counseling: Diagnosis, Treatment Family Education/Counseling: No Family Present SEPSIS Sepsis Screen Date sepsis recognized/suspect: Mar 03, 2025 Time Sepsis recognized/suspect: 719 Recent Procedure: No On Antibiotic Therapy: No Respiratory Rate >20: No Heart Rate >90: No Temp<36 C (96.8 F) or >38.3 C: No SBP <90 or MAP <65 mmHG: No New Acute Mental Status Change: No Is the patient on CPAP, BIPAP,: No Orders/Vitals/Labs Physician Orders L Rib X Ray (03/03/25 07:23) Vital Signs Date Time Temp Pulse Resp B/P (MAP) Pulse Ox O2 Delivery O2 Flow Rate FiO2 03/03/25 07:34 98.7 85 20 113/72 (86) 96 98.7 03/03/25 07:34 85 20 96 Room Air 03/03/25 07:19 98.7 85 20 113/72 (86) 96 98.7 Medications Medications Dose Ordered Sig/Slava Route Start Time Stop Time Status Last Admin Dose Admin Acetaminophen 1,000 mg ONCE ONCE PO 03/03/25 09:00 03/03/25 09:01 DC 03/03/25 09:05 Ketorolac Tromethamine 60 mg ONCE ONCE IM 03/03/25 09:00 03/03/25 09:01 DC 03/03/25 09:05 Departure 1 Departure Time of Disposition: 09:31 Impression: Primary Impression: Rib pain on left side Disposition: 01 HOME / SELF CARE / HOMELESS Condition: Fair e-Prescriptions Lidocaine (LIDODERM 5% TOPICAL PATCH) 1 Patch Ph 1 PATCH TOP DAILY for 30 Days, #30 PATCH 0 Refills Prov: JACINTA MERRITT NP 03/03/25 Critical Care Note Critical Care Time?: No Stability Stability form required: No Heart Score Heart Score: Heart Score Response (Comments) Value History N/A 0 EKG N/A 0 Age N/A 0 Risk Factors N/A 0 Troponin N/A 0 Total 0 I personally scribed for JACINTA MERRITT NP ([email or web address]) on 03/03/25 at 08:56. Elec tronically submitted by Robert Blackmon ([email or web address]). I personally scribed for JACINTA MERRITT NP ([email or web address]) on 03/03/25 at 09:17. Elec tronically submitted by Robert Blackmon ([email or web address]). JACINTA MERRITT NP Mar 03, 2025 08:56
[2025-03-03] MEDS: ACETAMINOPHEN 500 MG TAB or CAP PO ONE (09:05)
[2025-03-03] MEDS: KETOROLAC TROMETH 60MG/2ML VIAL IM ONE (09:05)
[2025-03-03] MEDS ORDERED: LIDO5DIS21 TOP (09:34)
[2025-03-03 09:35] VITALS: BP 114/61; PULSE 79; RESP 18; TEMP 98.3; O2SAT 98
--- NOTE | 2025-03-03 14:01 | DVHDS2 ---
Physician Discharge Progress N Final Diagnosis: gdm 37wks Operations or Procedures: Operations or Procedures nst reactive reviwed,sono Condition on Discharge: Good Disposition: Home Discharge Instructions: Diet: Consistent carbohydrate Activity: No Restrictions, As Tolerated Medications: na Follow Up Care: Specialist: 1w Discharge Statement: "Patient was advised to return to the ER or call 911 if any headaches, dizziness, shortness of breath, chest pain, abdominal pain, bleeding, fevers, or worsening of medical condition. Patient was counseled about treatment plan, medications, possible side effects, patientverbalized understanding. All questions were answered to the best of my ability. This discharge took greater then 30 minutes in planning, reviewing documentation, counseling the patient, and discussing with other team members." Visit Coding OBGYN Date of Service: Mar 03, 2025 Billing Provider: COLT ZEE DO GUARD DRIVER Common Visit Codes: [id number] OBS CARE (HIGH) GUARD DRIVER Procedure Codes: 40722-27- NON-STRESS TEST COLT ZEE DO Mar 03, 2025 14:01
== END 2025-03-03 09:49 | disposition home or self-care (01) ==
LOC: ER 07:03
DX: R07.81 Pleurodynia (principal); Z88.0 Allergy status to penicillin
CPT/HCPCS: 71101; 96372; 99283; J1885

== ENCOUNTER 2025-03-09 18:43 | Emergency (ER) | payer MEDICAID ==
[~2025-03-09] VITALS: Ht 157.5 cm; Wt 87.5 kg
[~2025-03-09 18:43] MED LIST changes: +LIDO5DIS21 TOP
[2025-03-09 19:21] VITALS: BP 118/79; PULSE 84; RESP 20; TEMP 97.7; O2SAT 97
[2025-03-09] MEDS ORDERED: ACET500T58 PO (19:24)
[2025-03-09] MEDS ORDERED: CEPH500C PO (19:24)
--- NOTE | 2025-03-09 19:25 | ED.PDOC ---
History of Present Illness(SKN HPI Comments 29-year-old female presents to ER with complaints of right thumb pain x1 day. Patient reports she has been experiencing pain localized to nailbed of right thumb s/p a wooden splinter getting stuck under the fingernail of her right thumb last night. States she fully remove the splinter but is still experi encing 10/10 right thumb pain. Denies numbness/tingling, foreign body sensation, bleeding/drainage or any further symptoms/complaints Chief Complaint: Upper Extremity Time Seen by MD: 18:44 Primary Care Provider: FRIEDA History of Present Illness: Nurses Notes, Medications, Allergies Allergies: Coded Allergies: Amoxicillin (Verified Allergy, Intermediate, Rash, 05/19/19) Latex (Verified Allergy, Unknown, 03/09/25) Home Meds Active Scripts Acetaminophen (Acetaminophen) 500 Mg Tab, 500 MG PO Q4HPRN, #30 TAB 0 Refills Prov:LINDSAY STALLWORTH 03/09/25 Cephalexin Monohydrate (Cephalexin) 500 Mg Cap, 1 CAP PO BID for 7 Days, #14 CAP 0 Refills Prov:LINDSAY STALLWORTH 03/09/25 Lidocaine (LIDODERM 5% TOPICAL PATCH) 1 Patch Ph, 1 PATCH TOP DAILY for 30 Days, #30 PATCH 0 Refills Prov:JACINTA MERRITT NP 03/03/25 Lidocaine HCl (Mouth-Throat) (Lidocaine HCl Viscous) 2 % Mariza, 5 ML MT TID, #100 ML Prov:MICKY MOSS 09/05/24 Penicillin V Potassium (Veetids) 500 Mg Tab, 1 TAB PO QID, #28 TAB Prov:MICKY MOSS 09/05/24 Ibuprofen (Ibuprofen) 800 Mg Tab, 1 TAB PO TID, #30 TAB Prov:MICKY MOSS 09/03/24 Azithromycin (Azithromycin) 500 Mg Tab, 1 TAB PO DAILY, #5 TAB Prov:MICKY MOSS 09/03/24 Information Source: Patient Mode of Arrival: Ambulatory Tetanus: Unknown Past Medical History PAST MEDICAL HISTORY: Denies Surgical History: Denies all surgeries LITHOGRAPH PRESS FEEDER History: No Pertinent LITHOGRAPH PRESS FEEDER History Family History Family History: Unknown Social History Smoker: Non-Smoker Alcohol: Denies ETOH Use Drugs: Denies Drug Use Lives In: Home Constitutional: denies: chills, diaphoresis, fatigue, fever, malaise, sweats, weakness, others EENTM: denies: blurred vision, double vision, ear bleeding, ear discharge, ear drainage, ear pain, ear ringing, eye pain, eye redness, hearing loss, mouth pain, mouth swelling, nasal discharge, nose bleeding, nose congestion, nose pain, photophobia, tearing, throat pain, throat swelling, voice changes, others Respiratory: denies: cough, hemoptysis, orthopnea, SOB at rest, shortness of breath, SOB with excertion, stridor, wheezing, others Cardiovascular: denies: chest pain, dizzy spells, diaphoresis, Dyspnea on exertion, edema, irregular heart beat, left arm pain, lightheadedness, palpitations, PND, syncope, others Gastrointestinal: denies: abdomen distended, abdominal pain, blood streaked bowels, constipated, diarrhea, dysphagia, difficulty swallowing, hematemesis, melena, nausea, poor appetite, poor fluid intake, rectal bleeding, rectal pain, vomiting, others Genitourinary: denies: abnormal vagina bleeding, burning, dyspareunia, dysuria, flank pain, frequency, hematuria, incontinence, pain, , vagina discharge, urgency, others Neurological: denies: dizziness, fainting, headache, left sided numbness, left sided weakness, numbness, paresthesia, pre-existing deficit, right sided numbness, right sided weakness, seizure, speech problems, tingling, tremors, weakness, others Musculoskeletal: denies: back pain, gout, joint pain, joint swelling, muscle pain, muscle stiffness, neck pain, others Integumetry: reports: others (As stated in HPI) Allergic/Immunocompromised: denies: Difficulty Healing, Frequent Infections, Hives, Itching, others Hematologic/Lymphatic: denies: anemia, blood clots, easy bleeding, easy bruising, swollen glands, others Endocrine: denies: excessive hunger, excessive sweating, excessive thirst, excessive urination, flushing, intolerance to cold, intolerance to heat, unexplained weight gain, unexplained weight loss, others Psychiatric: denies: anxiety, bipolar disorder, depression, hopeless, panic disorder, schizophrenia, sleepless, suicidal, others Physical Exam General Appearance: No Apparent Distress HEENT: PERRL/EOMI Neck: Full Range of Motion, Non-Tender, Normal Respiratory: Chest Non-Tender, Lungs Clear, No Accessory Muscle Use, No Respiratory Distress, Normal Breath Sounds Cardiovascular: No Murmur, No Gallop, Regular Rate/Rhythm Breast Exam: Deferred Gastrointestinal: NOT DONE Genitalia: Deferred Pelvic: Deferred Rectal: Deferred Extremities: Normal capillary refill, Normal range of motion Neurologic: Alert, No Motor Deficits, Normal Affect, Normal Mood, No Sensory Deficits Cerebellar Function: Normal Reflexes: Normal Skin: Dry, Warm, Other (Very small subungual hematoma with minimal erythema surrounding nailbed of right thumb noted. No bleeding/drainage/foreign body/bony tenderness appreciated. Patient able to fully move all fingers right hand. Pulses intact) Peripheral Pulses: 2+ Radial (R), 2+ Radial (L), 2+ Brachial (R), 2+ Brachial (L) Lymphatic: No Adenopathy Was a procedure done? Was a procedure done?: No Sedation Sedation?: No Differential Diagnosis (INTG) Differential Diagnosis: Abrasion Differential Diagnosis: Laceration, Retained Foreign Body, Other (fracture) X-Ray, Labs, Meds, VS Vital Signs Date Time Temp Pulse Resp B/P (MAP) Pulse Ox O2 Delivery O2 Flow Rate FiO2 03/09/25 19:21 97.7 84 20 118/79 (92) 97 97.7 03/09/25 19:21 Room Air* 0 21 03/09/25 18:53 97.7 84 20 118/79 (92) 97 97.7 03/09/25 18:50 98.6 96 18 134/95 (108) 98 98.6 Tdap 0.5 mL IM ordered Advised to follow up with PCP in 1-2 days Patient verbalized understanding and agreeable with current plan of care Advised to return to ER immediately if symptoms worsen Time of 1ST Reevaluation: 19:02 Reevaluation 1ST: N/A Patient Education/Counseling: Diagnosis, Treatment, Prognosis, Need For Follow Up Family Education/Counseling: No Family Present SEPSIS Sepsis Screen Date sepsis recognized/suspect: Mar 09, 2025 Time Sepsis recognized/suspect: 1852 Recent Procedure: No On Antibiotic Therapy: No Respiratory Rate >20: No Heart Rate >90: No Temp<36 C (96.8 F) or >38.3 C: No SBP <90 or MAP <65 mmHG: No New Acute Mental Status Change: No Is the patient on CPAP, BIPAP,: No Physician Orders Tetanus [id number] (Boostrix (03/09/25 19:30) Vital Signs Date Time Temp Pulse Resp B/P (MAP) Pulse Ox O2 Delivery O2 Flow Rate FiO2 03/09/25 19:21 97.7 84 20 118/79 (92) 97 97.7 03/09/25 19:21 Room Air* 0 21 03/09/25 18:53 97.7 84 20 118/79 (92) 97 97.7 03/09/25 18:50 98.6 96 18 134/95 (108) 98 98.6 Departure 1 Departure Time of Disposition: 19:22 Impression: Primary Impression: Splinter hemorrhage of fingernail Disposition: HOME / SELF CARE / HOMELESS Condition: Stable e-Prescriptions Acetaminophen (Acetaminophen) 500 Mg Tab 500 MG PO Q4HPRN, #30 TAB 0 Refills Prov: LINDSAY STALLWORTH 03/09/25 Cephalexin Monohydrate (Cephalexin) 500 Mg Cap 1 CAP PO BID for 7 Days, #14 CAP 0 Refills Prov: LINDSAY STALLWORTH 03/09/25 Discharged With: Self Critical Care Note Critical Care Time?: No Stability Stability form required: No Heart Score Heart Score: Heart Score Response (Comments) Value History N/A 0 EKG N/A 0 Age N/A 0 Risk Factors N/A 0 Troponin N/A 0 Total 0 LINDSAY STALLWORTH Mar 09, 2025 19:25
[2025-03-09] MEDS: TETANUS-DIPTH-ACEL PERTUSSIS 0.5ML SYR Tdap IM ONE (19:42)
== END 2025-03-09 19:46 | disposition home or self-care (01) ==
LOC: ER 18:45
DX: S60.351A Superficial foreign body of right thumb, initial encounter (principal); S60.111A Contusion of right thumb with damage to nail, initial encounter; Z88.0 Allergy status to penicillin; Z79.1 Long term (current) use of non-steroidal anti-inflammatories (NSAID); Z79.899 Other long term (current) drug therapy; W45.8XXA Other foreign body or object entering through skin, initial encounter; Y93.89 Activity, other specified; Y92.89 Other specified places as the place of occurrence of the external cause; Y99.8 Other external cause status
CPT/HCPCS: 90471; 90715